=== PATIENT | male | born 2005 | race Caucasian/White ===

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

== ENCOUNTER → 2024-01-06 | Outpatient (CLI) | payer OTHER | LOC: M SLEEP HO 11:03 | PROVIDERS: ATTEND Nurse Practitioner Family | DX: R06.83 Snoring (principal) ==

== ENCOUNTER → 2024-08-29 | Outpatient (CLI) | payer OTHER | LOC: M SOG 07:57 | PROVIDERS: ATTEND Orthopaedic Surgery | DX: M25.561 Pain in right knee (principal); M25.562 Pain in left knee ==

== ENCOUNTER → 2025-04-24 | Outpatient (CLI) | payer OTHER ==
[2025-04-24 14:10] LABS: CK-MB VALUE MASS 1.0 NG/ML (<3.6)
[2025-04-24 14:15] LABS: MYOGLOBIN 33.0 NG/ML (<110)
[2025-04-24 14:23] LABS: CPK CREATINE PHOSPHOKINASE 102 U/L (46-171); MB/CK RELATIVE INDEX 0.98 (< OR =4)
== END ==
LOC: M PLAIMG 11:26
PROVIDERS: ATTEND Physician Assistant Medical
DX: R07.89 Other chest pain (principal); Z87.898 Personal history of other specified conditions